=== PATIENT | female | born 1965 | race Caucasian/White ===

== ENCOUNTER 2025-06-26 09:10 | Day surgery (SDC) | payer MEDICARE, SELFPAY ==
--- OUTSIDE RECORDS SUMMARY | 2025-06-18 12:23 | XMS_ITS | Clinical Summary ---
Author Organization [address] Address [address] [place] [address] Phone Care Team Providers Care Surveillance Director Name Role Phone Salima España Primary Care Provider [phone] Medications loperamide (IMODIUM) 2 mg capsuleIndicatio ns:Diarrhea, unspecified type TAKE 2 CAPSULES BY MOUTH EVERY 8 HOURS NEEDED 180 capsule Active Surgical History Surgery Date Site/Laterality Comments SECTION PROCEDURE: HISTORICAL Social History Tobacco Use Types Packs/Day Years Used Date Smoking Tobacco: Former Cigarettes 0 Q uit: 03/04/2008 Smokeless Tobacco: Never Alcohol Use Standard Drinks/Week Comments Yes 0 (1 standard drink = 0.6 oz pur e alcohol) Comments Unknown Sex and Gender Information Value Date Recorded Sex Assigned at Not on file Legal Sex Female 8:34 AM EST Gender Identity Not on file Sexual Orientation Not on file Plan of Treatment Health Maintenance Due Date Last Done Comments Breast Cancer Screening 1965 Colorectal Cancer Screening: Colonoscopy 1965 DTaP,Tdap,and Td Vaccines (1 - Tdap) 09/05/1983 Pneumococcal Vaccine: 50+ Ye ars (1 of 1 - PCV) 2014 Zoster Vaccines (1 of 2) 2014 Cervical Cancer Screening: P ap Smear 05/16/2022 05/16/2019 Depression Screening 06/27/2024 HIV Screening 11/03/2024 Hepatitis C Screening 11/03/2024 Social Influencers of Health Screening 11/03/2024 COVID-19 Vaccine (1 - 2024-2 6 season) 2025 Influenza Vaccine (#1) 2025 Cholesterol Screening (Lipid Panel) 11/03/2029 11/03/2024 RSV Immunization Adult Patie nts (1 - 1-dose 75+ series) 09/05/2039 HIB Vaccines Aged Out No longer eligi ble based on patient's age to complete this topic HPV Vaccines Aged Out No longer eligi ble based on patient's age to complete this topic Hepatitis A Vaccines Aged Out No long er eligible based on patient's age to complete this topic Hepatitis B Vaccines Aged Out No long er eligible based on patient's age to complete this topic IPV Vaccines Aged Out No longer eligi ble based on patient's age to complete this topic MMR Vaccines Aged Out No longer eligi ble based on patient's age to complete this topic Meningococcal ACWY Vaccine Aged Out N o longer eligible based on patient's age to complete this topic Meningococcal B Vaccine Aged Out No l onger eligible based on patient's age to complete this topic RSV Immunization Patients Un oralia 20 months Aged Out No longer eligible b ased on patient's age to complete this topic Varicella Vaccines Aged Out No longer eligible based on patient's age to complete this topic Procedures Procedure Name Priority Date/Time Associated Diagnosis Comments LIPID PANEL WITH REFLEX TO DIRECT LDL Routine 11/03/2024 7:00 AM EDT Other senior care (current) drug therapy PAP SMEAR Routine 05/16/2019 from Last 3 Months or Most Recently Relevant to Health Maintenance Results * (ABNORMAL) Lipid panel with reflex to direct LDL (11/03/2024 7:00 AM EDT) Cholesterol 186 0 - 200 mg/dL LAB CHEMISTRY METHOD 11/03/2024 11:36 AM EDT [facility] Triglycerides 222(H) 0 - 150 mg/dL LAB CHEMISTRY METHOD 11/03/2024 11:36 AM EDT [facility] HDL 47 >=40 mg/dL LAB CHEMISTRY METHOD 11/03/2024 11:36 AM EDT [facility] LDL Calculated 95 0 - 100 mg/dL LAB CHEMISTRY METHOD 11/03/2024 11:36 AM EDT [facility] VLDL Cholesterol Graeme 44.4 mg/dL LAB CHEMISTRY METHOD 11/03/2024 11:36 AM EDT [facility] Non HDL Chol. (LDL+VLDL) 139 <145 mg/dL LAB CHEMISTRY METHOD 11/03/2024 11:36 AM EDT [facility] Chol/HDL Ratio 4.0 0.0 - 4.4 LAB CHEMISTRY METHOD 11/03/2024 11:36 AM EDT [facility] Blood Venous blood specimen / Unknown Venipuncture / Unknown 11/03/2024 7:00 AM EDT 11/03/2024 10:49 AM EDT us Taran Sutton NP LAB BLOOD ORDERABLES Final Resu lt [facility] [address] [place] [address], [place] [phone] * Pap smear (05/16/2019) 05/16/2019 Narrative HISTORICAL TESTING LAB RESULTING AGENCY - 05/25/2019 1:35 PM EST [id number] THINPREP PAP AND CELL BLOCK: NEGATIVE FOR SQUAMOUS INTRAEPITHELIAL LESION AND MALIGNANCY . ATROPHY. PAOLO MUHAMMAD , ANIVAL(ASCP) (CASE SCREENED 05 22 2019) JULIETA ZENDEJAS M.D. , PATHOLOGIST (CASE ELECTRONICALLY SIGNED 05 23 2019) RESULT OF APTIMA HIGH RISK HPV ASSAY: HIGH RISK HPV: NEGATIVE (SEROTYPES 16,18,31,33,35,39,45,51,52,56,58,59,66,68) COMPLETED ON 2019-05-18 ADEQUACY: SATISFACTORY ENDOCERVICAL/TRANSFORMATION ZONE COMPONENT PRESENT. SOURCE: THINPREP PAP HPV ANY DX: REFLEX 16 AND 18, CERVICAL, IMAGED CLINICAL INFORMATION: HPV ANY DIAGNOSIS. Z12.4, Z01.419, MENOPAUSE, PAP HX NEGATIVE CB 05/18/19 us Jessica Luis DO LAB CYTOLOGY ORDERABLES Final Result HISTORICAL TESTING LAB RESULTING AGENCY from Last 3 Months or Most Recently Relevant to Health Maintenance Care Teams Surveillance Director Relationship Specialty Start Date End Date Salima España [address] [place] [id number] PCP - General 12/06/22
--- OUTSIDE RECORDS SUMMARY | 2025-06-18 12:23 | XMS_ITS | Encounter Summary ---
Author Organization [facility] Address [address] [place] [address] Care Team Providers Care Electrical Engineering Teacher Name Role Phone Salima España Primary Care Provider [phone] Encounter Details Date Type Department Care Team (Late st Contact Info) Description 11/03/2024 Lab Requisition [facility] - Main Lab [address] [facility] [place] [address] Taran Sutton NP [address] [place], [place] [id number] Other terminal block assembler (current) drug therapy Social History Tobacco Use Types Packs/Day Years [...] on file Sexual Orientation Not on file documented as of this encounter Plan of Treatment Not on file documented as of this encounter Procedures Procedure Name Priority Date/Time Associated Diagnosis Comments THYROID STIMULATING HORMONE WITH REFLEX TO FREE T4 AND FREE T3 Routine 11/03/2024 7:00 AM EDT Other assisted (current) drug therapy LIPID PANEL WITH REFLEX TO DIRECT LDL Routine 11/03/2024 7:00 AM EDT Other terminal block assembler (current) drug therapy HEMOGLOBIN A1C Routine 11/03/2024 7:00 AM EDT Other terminal block assembler (current) drug therapy COMPREHENSIVE METABOLIC PANEL Routine 11/03/2024 7:00 AM EDT Other terminal block assembler (current) drug therapy documented in this encounter Results * Hemoglobin A1c (11/03/2024 7:00 AM EDT) Hemoglobin A1C 5.8 <6.5 % LAB CHEMISTRY METHOD 11/04/2024 8:10 AM EDT [facility] Mean Bld Glu Estim. 120 mg/dL LAB CHEMISTRY METHOD 11/04/2024 8:10 AM EDT [facility] Blood Venous blood specimen / Unknown Venipuncture / Unknown 11/03/2024 7:00 AM EDT 11/03/2024 10:49 AM EDT Taran Sutton NP LAB BLOOD ORDERABLES Final Resu lt Performing Organization Address [facility]/ZIP Co de Phone Number [facility] [address] [place] [address], [place] [phone] * Thyroid stimulating hormone with reflex to free t4 and free t3 (11/03/2024 7:00 AM EDT) [facility] TSH 2.41 0.40 - 4.00 mcIU/mL LAB CHEMISTRY METHOD 11/03/2024 12:00 PM EDT [facility] Blood Venous blood specimen / Unknown Venipuncture / Unknown 11/03/2024 7:00 AM EDT 11/03/2024 10:49 AM EDT Taran Sutton NP LAB BLOOD ORDERABLES Final Resu lt Performing Organization Address [facility]/ZIP Co de Phone Number [facility] [address] [place] [address], [place] [phone] * (ABNORMAL) Lipid panel with reflex to direct LDL (11/03/2024 7:00 AM EDT) [facility] Cholesterol 186 0 - 200 mg/dL LAB CHEMISTRY METHOD 11/03/2024 11:36 AM EDT [facility] Triglycerides 222(H) 0 - 150 mg/dL LAB CHEMISTRY METHOD 11/03/2024 11:36 AM EDT [facility] HDL 47 >=40 mg/dL LAB CHEMISTRY METHOD 11/03/2024 11:36 AM EDT [facility] LDL Calculated 95 0 - 100 mg/dL LAB CHEMISTRY METHOD 11/03/2024 11:36 AM EDT [facility] VLDL Cholesterol Graeme 44.4 mg/dL LAB CHEMISTRY METHOD 11/03/2024 11:36 AM EDT [facility] Non HDL Chol. (LDL+VLDL) 139 <145 mg/dL LAB CHEMISTRY METHOD 11/03/2024 11:36 AM EDT [facility] Chol/HDL Ratio 4.0 0.0 - 4.4 LAB CHEMISTRY METHOD 11/03/2024 11:36 AM EDT [facility] Blood Venous blood specimen / Unknown Venipuncture / Unknown 11/03/2024 7:00 AM EDT 11/03/2024 10:49 AM EDT us Taran Sutton NP LAB BLOOD ORDERABLES Final Resu lt [facility] [address] [place] [address], * (ABNORMAL) Comprehensive metabolic panel (11/03/2024 7:00 AM EDT) Sodium 138 133 - 145 mmol/L LAB CHEMISTRY METHOD 11/03/2024 11:36 AM EDT [facility] Potassium 3.5 3.5 - 5.5 mmol/L LAB CHEMISTRY METHOD 11/03/2024 11:36 AM EDT [facility] Chloride 102 96 - 110 mmol/L LAB CHEMISTRY METHOD 11/03/2024 11:36 AM EDT [facility] CO2 26 21 - 32 mmol/L LAB CHEMISTRY METHOD 11/03/2024 11:36 AM [facility] Anion Gap 10 3 - 11 LAB CHEMISTRY METHOD 11/03/2024 11:36 AM [facility] Glucose 142(H) 70 - 100 mg/dL LAB CHEMISTRY METHOD 11/03/2024 11:36 AM [facility] BUN 14 5 - 25 mg/dL LAB CHEMISTRY METHOD 11/03/2024 11:36 AM [facility] Creatinine 0.87 0.50 - 1.10 mg/dL LAB CHEMISTRY METHOD 11/03/2024 11:36 AM [facility] eGFR 76 >=60 mL/min/1. 73m2 LAB CHEMISTRY METHOD 11/03/2024 11:36 AM [facility] Comment:Calculation based on the Chronic Kidney Disease Epidemiology Collaboration (CKD-EPI) equation refit without adjustment for race. BUN/Creatinine Ratio 16.1 LAB CHEMISTRY METHOD 11/03/2024 11:36 AM [facility] Calcium 9.9 8.5 - 10.5 mg/dL LAB CHEMISTRY METHOD 11/03/2024 11:36 AM [facility] AST (SGOT) 43(H) 10 - 42 unit/L LAB CHEMISTRY METHOD 11/03/2024 11:36 AM [facility] ALT (SGPT) 63(H) 10 - 60 unit/L LAB CHEMISTRY METHOD 11/03/2024 11:36 AM [facility] Alkaline Phosphatase 62 42 - 121 unit/L LAB CHEMISTRY METHOD 11/03/2024 11:36 AM [facility] Total Protein 7.5 6.0 - 8.0 g/dL LAB CHEMISTRY METHOD 11/03/2024 11:36 AM [facility] Albumin 4.0 3.2 - 5.0 g/dL LAB CHEMISTRY METHOD 11/03/2024 11:36 AM EDT [facility] Total Bilirubin 0.7 0.0 - 1.4 mg/dL LAB CHEMISTRY METHOD 11/03/2024 11:36 AM EDT [facility] Blood Venous blood specimen / Unknown Venipuncture / Unknown 11/03/2024 7:00 AM EDT 11/03/2024 10:49 AM EDT us Taran Sutton MEDICAL STAFF MANAGER LAB BLOOD ORDERABLES Final Resu lt [facility] [address] [place] [address], documented in this encounter Visit Diagnoses Diagnosis Other assisted (current) drug therapy documented in this encounter Care Teams Electrical Engineering Teacher Relationship Specialty Start Date End Date Salima España [address] [place] [id number] PCP - General 12/06/22 documented as of this encounter
--- OUTSIDE RECORDS SUMMARY | 2025-06-18 12:23 | XMS_ITS | Encounter Summary ---
Author Organization [facility] Address [address] [place] [address] Care Team Providers Care Customer Account Coordinator Name Role Phone Salima España Primary Care Provider [phone] Encounter Details Date Type Department Care Team (Late st Contact Info) Description 11/03/2024 Lab Requisition [facility] - Main Lab [address] [facility] [place] [address] Taran Sutton NP [address] [place], [place] [phone] Social History Tobacco Use Types Packs/Day Years [...] on file documented as of this encounter Visit Diagnoses Not on filedocumented in this encounter Care Teams Customer Account Coordinator Relationship Specialty Start Date End Date [place] [address] PCP - General 12/06/22 documented as of this encounter
--- OUTSIDE RECORDS SUMMARY | 2025-06-18 12:23 | XMS_ITS | Patient Health Record ---
Author Organization [facility] Address [address] [place] [address] Care Team Providers Care Career Based Intervention Coordinator Name Role Phone TORI NAJERA N.P. Primary Care Provider Unavaila Galina Carter Unavailable [phone] Allergies Allergen (clinical drug ingredient) Drug/Non Drug Allergy documented on EMR Reaction Allergy Type Onset Date Status benztropine Benztropine Mesylate Unknown Drug Allergy Active Sulfa Unknown Drug Allergy Active Reason For Referral No Information Medications Medication SIG (Take, Route, Frequency, Duration) Notes Start Date End Date Status Omeprazole 20 MG Orally Act sandra busPIRone HCl 10 MG Orally Active Losartan Potassium 100 MG Orally Active Abilify 20 MG Orally Active Cholestyramine Activ e Montelukast Sodium 10 MG 1 tablet Orally Once a day Active Loperamide A-D 2 MG Orally Active Metoprolol Tartrate 25 MG Orally Active Social History Tobacco Use: Social History Observation Description Date Details (start date - stop date) Former Smoker NA - NA Tobacco Use/Smoking Question Answer Notes Are you a former smoker How long has it been since you last smoked? 5-10 years Alcohol Screen (Audit-C) Question Answer Notes Did you have a drink contain ing alcohol in the past year? Yes Points 1 Interpretation Negative How many drinks did you have on a typical day when you were drinking in the past year? 1 or 2 drinks (0 point) How often did you have a dri nk containing alcohol in the past year? Monthly or less (1 point) Tobacco use other than smoking: Question Answer Notes Are you an other tobacco user? No Problems Problem Type SNOMED Code ICD Code Onset Dates Problem Status W/U Status Risk Notes Problem Essential hypertension (69474831) Essential (primary) hypertension (I10) Active confirmed Problem Gastro-esophageal reflux disease with esophagitis (435783526) Gastro-esophagea l reflux disease with esophagitis (K21.0) Active confirmed Problem Psoriasis (6424727) Psoriasis, unspecified (L40.9) Active confirmed Problem Rosacea (130241218) Rosacea, unspecified (L71.9) Active confirmed Problem Hidradenitis suppurativa (36883972) Hidradenitis suppurativa (L73.2) Active confirmed Problem Irritable bowel syndrome characterized by constipation (244795692) Irritable bowel syndrome with constipation (K58.1) Active confirmed Plan Of Treatment Pending Test Test Name Order Date DIAGNOSTIC MAMMOGRAM, RIGHT BREAST 11/11 THIN PREP,HPV,HARRIS IF HPV+ (>29YR)(SCRN) 05/18/2016 MM Digital Mammo Screening 05/24/2017 MM Digital Mammo Screening 04/13/2016 MM Digital Mammo Screening 05/18/2016 Insurance Providers Payer Name Payer Address Payer Phone Subscriber Number Group Number Insured Name Patient Relationship to Insured Coverage Start Date Coverage End Date [employer] [address] [place] [phone] [id number] [employer]ID[employer]HU Self - patient is the insured Medical (General) History Medical History History ICD Code Essential (primary) hypertension Hidradenitis suppurativa L73.2 Irritable bowel syndrome with constipati on K58.1 Gastro-esophageal reflux disease with es ophagitis K21.0 Rosacea, unspecified L71.9 Surgical History Surgery Date(Month/Year) CHOLECYSTECTOMY BREAST CYST resection boil resection 2014 boil resection 12/2016
[2025-06-19 11:17] VITALS: BMI 40.1
[2025-06-26 10:26] VITALS: BP 174/88; PULSE 120; RESP 16; TEMP 37.3; O2SAT 96
[2025-06-26] MEDS: Lactated Ringers 1,000 ML 100 ML IVCONT (10:27)
--- NOTE | 2025-06-26 12:52 | HO.ANESPROP2 ---
Documented by User: Tabitha Lester NP 06/21/25 10:45 HPI - Anesthesia Eval Consult details Narrative: 59 yr old female for bilateral lateral rectus eye muscle recession/resection BMI 40 Asthma/tobacco use GERD PMFSH Past Medical History Medical History (Updated 06/19/25 @ 11:12 by Ceci Hurst RN) Glaucoma Obesity Psoriasis GERD (gastroesophageal reflux disease) Hypertriglyceridemia Hypothyroid IBS (irritable bowel syndrome) Bipolar disorder Asthma HTN (hypertension) Surgical History Surgical History (Updated 06/19/25 @ 11:12 by Ceci Hurst RN) Hx of breast biopsy Hx of section History of anal fistulotomy Hx of eye surgery H/O colonoscopy Hx of tonsillectomy Hx of cholecystectomy Social History Social History (Updated 06/19/25 @ 11:17 by Ceci Hurst RN) Patient Tobacco Use Status: Former Tobacco user Tobacco use type: Cigarette Use of substances other than those prescribed or required for medical reasons: No Advance Directives: No Advance Directives Information Provided: Yes Meds Allergies Allergy/AdvReac Type Severity Reaction Status Date / Time benztropine Allergy Intermediate Vomiting Verified 06/19/25 11:13 lithium Allergy Intermediate Hives (is Verified 06/19/25 11:18 currently taking) Sulfa (Sulfonamide Allergy Intermediate Rash Verified 06/19/25 11:13 Antibiotics) Home Medications ?Medication ?Instructions ?Recorded ?Confirmed ?Last Taken ?Type albuterol sulfate 90 mcg/actuation 2 puff inhalation Q4H PRN 06/19/25 06/19/25 Unknown History aerosol inhaler Shortness Of Breath Or Wheezing aripiprazole 20 mg tablet 20 mg PO BEDTIME 06/19/25 06/19/25 Unknown History buspirone 10 mg tablet 20 mg PO BID 06/19/25 06/19/25 Unknown History chlorthalidone 25 mg tablet 12.5 mg PO DAILY 06/19/25 06/19/25 Unknown History cholestyramine (with sugar) 4 gram 1 ea PO BID 06/19/25 06/19/25 Unknown History powder for susp in a packet deucravacitinib 6 mg tablet 6 mg PO DAILY 06/19/25 06/19/25 Unknown History (Sotyktu) hydroxyzine pamoate 50 mg capsule 50 mg PO QID PRN anxiety 06/19/25 06/19/25 Unknown History lithium carbonate 450 mg 450 mg PO BEDTIME 06/19/25 06/19/25 Unknown History tablet,extended release losartan 100 mg tablet 100 mg PO DAILY 06/19/25 06/19/25 Unknown History potassium chloride 10 mEq 10 meq PO DAILY 06/19/25 06/19/25 Unknown History tablet,extended release trazodone 100 mg tablet 100 - 200 mg PO BEDTIME PRN 06/19/25 06/19/25 Unknown History insomnia Exam Height,Weight and Vital Signs: Height 5 ft 2.99 in Weight 102.6 kg Documented by User: Whitney Perez DO 06/26/25 12:54 HPI - Anesthesia Eval Consult details Narrative: 59 yr old female for bilateral lateral rectus eye muscle recession/resection BMI 40 PMFSH Past Medical History Medical History (Updated 06/19/25 @ 11:12 by Ceci Hurst RN) Glaucoma Obesity Psoriasis GERD (gastroesophageal reflux disease) Hypertriglyceridemia Hypothyroid IBS (irritable bowel syndrome) Bipolar disorder Asthma HTN (hypertension) Family History Family history of problems with anesthesia: No Surgical History Surgical History (Updated 06/19/25 @ 11:12 by Ceci Hurst RN) Hx of breast biopsy Hx of section History of anal fistulotomy Hx of eye surgery H/O colonoscopy Hx of tonsillectomy Hx of cholecystectomy History of Problems with Anesthesia: No Social History Social History (Updated 06/19/25 @ 11:17 by Ceci Hurst RN) Patient Tobacco Use Status: Former Tobacco user Tobacco use type: Cigarette Use of substances other than those prescribed or required for medical reasons: No Advance Directives: No Advance Directives Information Provided: Yes Meds Allergies Allergy/AdvReac Type Severity Reaction Status Date / Time benztropine Allergy Intermediate Vomiting Verified 06/19/25 11:13 lithium Allergy Intermediate Hives (is Verified 06/19/25 11:18 currently taking) Sulfa (Sulfonamide Allergy Intermediate Rash Verified 06/19/25 11:13 Antibiotics) Home Medications ?Medication ?Instructions ?Recorded ?Confirmed ?Last Taken ?Type albuterol sulfate 90 mcg/actuation 2 puff inhalation Q4H PRN 06/19/25 06/19/25 Unknown History aerosol inhaler Shortness Of Breath Or Wheezing aripiprazole 20 mg tablet 20 mg PO BEDTIME 06/19/25 06/19/25 Unknown History buspirone 10 mg tablet 20 mg PO BID 06/19/25 06/19/25 Unknown History chlorthalidone 25 mg tablet 12.5 mg PO DAILY 06/19/25 06/19/25 Unknown History cholestyramine (with sugar) 4 gram 1 ea PO BID 06/19/25 06/19/25 Unknown History powder for susp in a packet deucravacitinib 6 mg tablet 6 mg PO DAILY 06/19/25 06/19/25 Unknown History (Aide) hydroxyzine pamoate 50 mg capsule 50 mg PO QID PRN anxiety 06/19/25 06/19/25 Unknown History lithium carbonate 450 mg 450 mg PO BEDTIME 06/19/25 06/19/25 Unknown History tablet,extended release losartan 100 mg tablet 100 mg PO DAILY 06/19/25 06/19/25 Unknown History potassium chloride 10 mEq 10 meq PO DAILY 06/19/25 06/19/25 Unknown History tablet,extended release trazodone 100 mg tablet 100 - 200 mg PO BEDTIME PRN 06/19/25 06/19/25 Unknown History insomnia Exam Exam Date and Time: 06/26/25 1252 Height,Weight and Vital Signs: Height 5 ft 2.99 in Weight 102.6 kg Vital Signs Temperature 99.1 F 06/26/25 10:26 Pulse Rate 120 H 06/26/25 10:26 Respiratory Rate 16 06/26/25 10:26 Blood Pressure 174/88 H 06/26/25 10:26 Pulse Oximetry 96 06/26/25 10:26 Oxygen Delivery Method Room Air 06/26/25 10:26 Temperature 99.1 F 06/26/25 10:26 Pulse Rate 120 H 06/26/25 10:26 Respiratory Rate 16 06/26/25 10:26 Blood Pressure 174/88 H 06/26/25 10:26 Pulse Oximetry 96 06/26/25 10:26 Oxygen Delivery Method Room Air 06/26/25 10:26 Airway Mallampati Class: III TM Dist: <=3cm Neck ROM: Full Loose/Missing/Broken Teeth: Yes (broken molar, permanent bridge lower jaw) Heart: S1S2 Lungs: CTAB Assessment and Plan Assessment Anesthesia Assessment: Anesthesia Plan Discussed and Chart Reviewed Final Anesthetic Review Family History of Problems with Anesthesia: No History of Problems with Anesthesia: No NPO: Yes ASA Class: III Final Preanesthetic Review: No Changes in Pt Med Stat, Meds/Allgs Chart Reviewed, Consent Obtained/Reviewed and Anes Risks/Benef Reviewed Patient Risk: Low Procedure Risk: Low Anesthetic Plan Anesthetic Plan: GA and Agree w/ Assess. and Plan Disposition: Standard PACU
[2025-06-26 13:44] VITALS: BP 124/62; PULSE 107; RESP 16; TEMP 37; O2SAT 96
--- NOTE | 2025-06-26 13:47 | HO.OPHTHAL ---
Ophthalmology Operative Note Date of Service: 06/26/25 Narrative: Diagnosis exotropia. Postoperative diagnosis same. Procedure bilateral lateral rectus recessions of [address] Savage. Anesthesia general. Complications none. The patient is brought the operating room placed under general anesthesia. The eyes were prepped and draped in the usual sterile ophthalmic fashion. A lid speculum was placed in the right eye and a peritomy was created around the lateral rectus muscle. The muscle was hooked and secured with a double-armed Vicryl suture. The muscle was disinserted from the globe and reattached to a position 6 mm behind the original insertion. Conjunctiva was closed with interrupted Vicryl sutures. An identical procedure was then performed on the left eye. The patient was then awoke from general anesthesia and discharged to postoperative recovery in good condition.
[2025-06-26 13:49] VITALS: BP 125/61; PULSE 107; RESP 18; O2SAT 97
[2025-06-26 13:54] VITALS: BP 127/61; PULSE 112; RESP 18; O2SAT 96
[2025-06-26 13:59] VITALS: BP 144/77; PULSE 114; RESP 18; O2SAT 95
[2025-06-26 14:14] VITALS: BP 155/73; PULSE 103; RESP 18; TEMP 37; O2SAT 96
== END 2025-06-26 14:50 | disposition home or self-care (01) ==
PROVIDERS: PCP Nurse Practitioner Family; Visit Provider Ophthalmology
PROC: (CPT 67311; principal; 2025-06-26 13:50)
DX: H50.15 Alternating exotropia (principal); J45.909 Unspecified asthma, uncomplicated; L40.9 Psoriasis, unspecified; I10 Essential (primary) hypertension; E78.1 Pure hyperglyceridemia; E03.8 Other specified hypothyroidism; E66.01 Morbid (severe) obesity due to excess calories; Z68.41 Body mass index [BMI] 40.0-44.9, adult; K21.9 Gastro-esophageal reflux disease without esophagitis; F31.9 Bipolar disorder, unspecified; Z79.899 Other long term (current) drug therapy; Z98.890 Other specified postprocedural states; Z88.2 Allergy status to sulfonamides; Z88.8 Allergy status to other drugs, medicaments and biological substances; Z87.891 Personal history of nicotine dependence
CPT/HCPCS: 67311; J0131; J1100; J1596; J2003; J2405; J2704; J3010